=== PATIENT | female | born 1960 | race Caucasian/White ===

== ENCOUNTER 2017-08-16 01:12 | Emergency (ER) | payer BC ==
[~2017-08-16] VITALS: Ht 162.6 cm; Wt 78.4 kg
[2017-08-16 01:14] VITALS: BP 155/90; PULSE 94; TEMP 36.8; O2SAT 98; Ht 162.6 cm; Wt 78.4 kg
[2017-08-16 01:45] LABS: BASO % 0.3 %; BASO ABS # 0.04 K/uL (0-0.2); EOS % 1.6 %; EOS ABS # 0.19 K/uL (0-0.5); HEMATOCRIT 43.9 % (37-47); HEMOGLOBIN 14.6 g/dL (12.0-16.0); IG# 0.03 K/uL (0.00-0.02); LYMPH % 21.4 %; MEAN CELL VOLUME 90.1 fL (80-100); MEAN CORPUSCULAR HGB CONC 33.3 g/dl (32-36); MEAN PLATELET VOLUME 9.6 fL (7.4-10.4); MONO % 8.2 %; MONO ABS # 0.96 K/uL (0.11-0.59); NEUT % 68.2 %; NEUT ABS # 7.94 K/uL (1.4-6.5); PLATELET COUNT 306 K/uL (130-400); RED CELL DISTRIBUTION WIDTH CV 12.8 % (11.5-14.5); RED CELL DISTRIBUTION WIDTH SD 42.3 fL (36.4-46.3); WHITE BLOOD COUNT 11.66 K/uL (4.8-10.8)
[2017-08-16] MEDS ORDERED: ADVIN10/60 INH (01:45)
[2017-08-16] MEDS ORDERED: METF-384 PO (01:45)
[2017-08-16] MEDS ORDERED: PANT40TA PO (01:45)
[2017-08-16] MEDS ORDERED: ALBU18002 INH (01:45)
[2017-08-16] MEDS ORDERED: METRONIDAZOLE 250 MG TAB ONE (03:38)
[2017-08-16] MEDS ORDERED: CIPROFLOXACIN 500 MG TAB ONE (03:38)
[2017-08-16] MEDS ORDERED: OXYCODONE IR HOME PACK PO ONE (03:38)
[2017-08-16] MEDS ORDERED: ONDANSETRON INJ 2 MG/ML 2 ML VIAL ONE (03:38)
[2017-08-16] MEDS ORDERED: MoRPHine SULFATE 4 MG/ML 1 ML CARP\\VIAL ONE (03:38)
[2017-08-16] MEDS ORDERED: ONDANSETRON HOME PACK 4MG OD TAB ONE (03:39)
[2017-08-16 04:25] LABS: ALBUMIN 3.8 gm/dl (3.4-5.0); ALKALINE PHOSPHATASE 88 U/L (45-117); ALT/SGPT 70 U/L (12-78); AST/SGOT 25 U/L (15-37); BLOOD UREA NITROGEN 11 mg/dl (7-18); CALCIUM 9.7 mg/dl (8.5-10.1); CARBON DIOXIDE 28 mmol/L (21-32); CREATININE 0.79 mg/dl (0.60-1.20); GLUCOSE 196 mg/dl (70-99); LIPASE 177 U/L (73-393); POTASSIUM 3.8 mmol/L (3.5-5.1); SODIUM 136 mmol/L (136-145); TOTAL PROTEIN 7.9 gm/dl (6.4-8.2)
[2017-08-16] MEDS ORDERED: OPTIRAY 320 IV PRN (04:30)
--- NOTE | 2017-08-16 04:45 | EMERGENCY ROOM VISIT NOTE ---
History First contact with patient: 01:18 Chief Complaint: ABDOMINAL PAIN Stated Complaint: LOWER ABD PAIN Nursing Triage Summary: lower abdomen pain for several days. radiates to back. no urinary symptoms. +nausea. pt concerned it's her appendix. no fever or chills. no diarrhea or vomiting. History of Present Illness The patient is a 57 year old female who presents to the Emergency Room with complaints of suprapubic lower abdominal pain for the past week described as discomfort, ranging in severity 4 out of 10. No recent imaging on her ovaries. She is postmenopausal. She has had a tubal ligation in the past. Patient denies chest pain, dyspnea, fever, chills, nausea, vomiting, diarrhea, urinary symptoms, vaginal itching or discharge. She occasionally has some low back discomfort. She occasionally has bloating to her lower abdomen. No night sweats or weight loss. Blood sugars have been running around 140 which is normal per patient. Review of Systems An 10 system review of systems was completed with positives and pertinent negatives listed in the HPI. Past Medical/Surgical History Tubal ligation, asthma, diabetes Social History Smoking Status: Never Smoker Smokeless Tobacco Use: No Drug Use: none Marital Status: Housing Status: lives with family Current/Historical Medications Scheduled Fluticasone Prop/Salmeterol (Advair Diskus 100/50 60 Dose), 1 PUFF INH QAM Metformin Hcl (Glucophage), 1,000 MG PO BID Pantoprazole (Protonix), 40 MG PO QAM Scheduled PRN Albuterol Sulfate (Proair Respiclick), 2 PUFFS INH DIRECTED PRN for Wheezing Physical Exam Vital Signs Date Time Temp Pulse Resp B/P (MAP) Pulse Ox O2 Delivery O2 Flow Rate FiO2 08/16/17 01:14 36.8 94 18 155/90 98 Room Air Physical Exam VITALS: Vitals are noted on the nurse's note and reviewed by myself. Vital signs hypertensive GENERAL: Pleasant female, in no acute distress, nondiaphoretic, well-developed well-nourished. SKIN: Capillary reflex less than 2 seconds. HEENT: Normocephalic. PERRLA. EOMI. Nares patent. Mucous membranes moist. Neck is supple without nuchal rigidity. HEART: Regular rate and rhythm without murmurs gallops or rubs. LUNGS: Clear to auscultation bilaterally without wheezes, rales or rhonchi. No retractions or accessory muscle use. ABDOMEN: Positive bowel sounds x 4. Normal tympanic percussion. Soft, minimally tender suprapubic area, no CVA tenderness, without masses or organomegaly. Bennett sign negative. No guarding or rebound tenderness. MUSCULOSKELETAL: No gross musculoskeletal defects. No pedal edema. No calf tenderness. NEURO: Patient was alert and oriented to person place and time. Normal sensation to light and sharp touch. No focal neurological deficits. Medical Decision & Procedures Laboratory Results 08/16/17 01:30 Red Blood Count 4.87, Mean Corpuscular Volume 90.1, Mean Corpuscular Hemoglobin 30.0, Mean Corpuscular Hemoglobin Concent 33.3, Mean Platelet Volume 9.6, Neutrophils (%) (Auto) 68.2, Lymphocytes (%) (Auto) 21.4, Monocytes (%) (Auto) 8.2, Eosinophils (%) (Auto) 1.6, Basophils (%) (Auto) 0.3, Neutrophils # (Auto) 7.94, Lymphocytes # (Auto) 2.50, Monocytes # (Auto) 0.96, Eosinophils # (Auto) 0.19, Basophils # (Auto) 0.04 08/16/17 01:30 Test 08/16/17 01:25 08/16/17 01:30 Urine Color YELLOW Urine Appearance CLEAR (CLEAR) Urine pH 5.5 (4.5-7.5) Urine Specific [place] 1.021 (1.000-1.030) Urine Protein NEG (NEG) Urine Glucose (UA) 3+ (NEG) Urine Ketones NEG (NEG) Urine Occult Blood 1+ (NEG) Urine Nitrite NEG (NEG) Urine Bilirubin NEG (NEG) Urine Urobilinogen NEG (NEG) Urine Leukocyte Esterase NEG (NEG) Urine WBC (Auto) 1-5 /hpf (0-5) Urine RBC (Auto) 0-4 /hpf (0-4) Urine Hyaline Casts (Auto) 0 /lpf (0-5) Urine Epithelial Cells (Auto) 10-20 /lpf (0-5) Urine Bacteria (Auto) NEG (NEG) White Blood Count 11.66 K/uL (4.8-10.8) Red Blood Count 4.87 M/uL (4.2-5.4) Hemoglobin 14.6 g/dL (12.0-16.0) Hematocrit 43.9 % (37-47) Mean Corpuscular Volume 90.1 fL (80-100) Mean Corpuscular Hemoglobin 30.0 pg (25-34) Mean Corpuscular Hemoglobin Concent 33.3 g/dl (32-36) Platelet Count 306 K/uL (130-400) Mean Platelet Volume 9.6 fL (7.4-10.4) Neutrophils (%) (Auto) 68.2 % Lymphocytes (%) (Auto) 21.4 % Monocytes (%) (Auto) 8.2 % Eosinophils (%) (Auto) 1.6 % Basophils (%) (Auto) 0.3 % Neutrophils # (Auto) 7.94 K/uL (1.4-6.5) Lymphocytes # (Auto) 2.50 K/uL (1.2-3.4) Monocytes # (Auto) 0.96 K/uL (0.11-0.59) Eosinophils # (Auto) 0.19 K/uL (0-0.5) Basophils # (Auto) 0.04 K/uL (0-0.2) RDW Standard Deviation 42.3 fL (36.4-46.3) RDW Coefficient of Variation 12.8 % (11.5-14.5) Immature Granulocyte % (Auto) 0.3 % Immature Granulocyte # (Auto) 0.03 K/uL (0.00-0.02) Anion Gap 7.0 mmol/L (3-11) Est Creatinine Clear Calc Drug Dose 81.5 ml/min Estimated GFR () 97.7 Estimated GFR (Non- 84.3 BUN/Creatinine Ratio 13.7 (10-20) Calcium Level 9.7 mg/dl (8.5-10.1) Total Bilirubin 0.3 mg/dl (0.2-1) Direct Bilirubin < 0.1 mg/dl (0-0.2) Aspartate Amino Transf (AST/SGOT) 25 U/L (15-37) Alanine Aminotransferase (ALT/SGPT) 70 U/L (12-78) Alkaline Phosphatase 88 U/L (45-117) Total Protein 7.9 gm/dl (6.4-8.2) Albumin 3.8 gm/dl (3.4-5.0) Lipase 177 U/L (73-393) ED Course Prior records/ancillary studies reviewed. Triage Nursing notes reviewed. Additional history obtained from family The patient's history was concerning for lower abdominal pain. Differential diagnosis: Etiologies such as ovarian cyst, ovarian mass, ovarian carcinoma, appendicitis, diverticulitis, PUD, biliary pathology, UTI, pancreatitis, obstruction, mesenteric ischemia, aortic pathology, infections, inflammatory bowel disease, renal colic, as well as others were entertained. Physical examination findings: As above. ER treatment provided: Patient was observed On reassessment the patient felt better. Diagnostics interpreted by me: The labs revealed leukocytosis. Negative urine Imaging studies: CT concerning for diverticulitis Exam and history seem consistent with diverticulitis. Patient states she has had some spotting since menopause and was informed to get a endometrial biopsy. Patient states she is always had painful intercourse and does not like instrumentation in her vaginal area. This is not new. Patient did not have an acute abdomen on exam. She is neurovascularly and neurologically intact. She is well appearing. She is advised to follow-up with family care in a few days or here in the ER sooner for abdominal pain, fevers, vomiting, worsening signs or symptoms or as needed.By the evaluation outlined above emergent etiologies such as appendicitis, PUD, biliary pathology, UTI, pancreatitis, obstruction, mesenteric ischemia, aortic pathology, infections, inflammatory bowel disease, renal colic, as well as others were deemed relatively unlikely. The pt informed about the findings as listed above. All questions were answered and pleased with the treatment. Return instructions were outlined and the patient was discharged in stable condition. Outpatient prescription management: Cipro, Flagyl, OxyIR, Zofran Referral: The patient was referred back to their primary care physician for follow-up in 2 to 3 days for a recheck of the current condition. Case reviewed with my attending The chart was completed utilizing [employer] Speech voice recognition software. Grammatical errors, random word insertions, pronoun errors, and incomplete sentences are an occassional consequence of this system due to software limitations, ambient noise, and hardware issues. Any formal questions or concerns about the content, text, or information contained within the body of this dictation should be directly addressed to the physician hotel assistant general manager for clarification. Medical Decision As above Medication Reconcilliation Current Medication List: was personally reviewed by me Blood Pressure Screening Patient's blood pressure: Elevated blood pressure Blood pressure disposition: Elevated BP felt to be situational Impression Primary Impression: Sigmoid diverticulitis Departure Information Dispostion Home / Self-Care Condition GOOD Referrals Tobin Valenzuela D.O. (PCP) Patient Instructions My [facility] Additional Instructions DO NOT drive, drink alcohol, operate machinery, or perform dangerous activities today. You were given medications in the ER that can affect your ability to safely function or operate a vehicle. Zofran 4 m tablet every 6 hours as needed for nausea or vomiting. Oxycodone (OxyIR) 5mg: Take 1-2 pills every four hours for breakthrough pain. Avoid alcohol, operating machinery or dangerous equipment, working on ladders or roofs, DRIVING, or situations where being under the influence may be dangerous. It is recommended to use an [id number] stool softener such as Colace, 100mg twice daily while taking this medication to avoid constipation. Ciprofloxacin(Cipro) 500mg: Take one pill twice daily for 14 days for your bowel infection. All antibiotics can cause diarrhea. If this occurs and you feel worse or it does not resolve in 1-2 days follow up with your doctor or return to the Emergency Department as this could be signs of serious underlying problems. If you experience any pain in your tendons or any tendon injury return to the ER for re-evaluation. Any medication can cause an allergic reaction, stop the pills immediately and return to the ER for rash, hives, breathing difficulties, or swelling. Metronidazole(Flagyl) 500mg: Take one pill 3 times daily for 14 days for your bowel infection. DO NOT drink alcohol or take alcohol containing products with this medication. Any medication can cause an allergic reaction, stop the pills immediately and return to the ER for rash, hives, breathing difficulties, or swelling. Ibuprofen(Motrin, Advil) may be used for fever or pain. Use 600mg every six hours as needed. Take with food. Avoid using more than 2400mg in a 24 hour period. Do not use 2400mg per day for more than three consecutive days without physician direction. Prolonged inappropriate use can lead to stomach upset or ulcers. (AND/OR) Acetaminophen(Tylenol) may be used for fever or pain. Use 1000mg every six hours as needed. Avoid using more than 3000mg in a 24 hour period. Rest and drink plenty of fluids as tolerated. Slow sips of water or sports drinks are recommended instead of large amounts all at once. Continue current medications. Once your stomach is settled start with a clear liquid diet (jello, soup broth, etc.) and then advance as tolerated. You should avoid full, heavy meals for about 24 hrs from the time your symptoms resolved. Return to the ER immediately for worsening or persistent abdominal pain, vomiting, fevers, chest pains, difficulty breathing, black or bloody stools, worsening of your condition, or as needed. Follow up with your primary physician/layout man in 2-3 days for a recheck of your current condition. You need to follow-up with your NURSE EXAMINER for postmenopausal bleeding for endometrial biopsy.
--- NOTE | 2017-08-16 06:45 | DIAGNOSTIC IMAGING REPORT ---
PELVIC COMPLETE NON OB CLINICAL HISTORY: pelvic pain, post menopause COMPARISON STUDY: None FINDINGS: Study is extremely limited as the patient declined incomplete exam. No transvaginal evaluation was performed. Possible 1.8 uterine fibroid is considered. Maximum dimension of the uterus could not be evaluated with certainty. The ovaries are not identified with certainty. IMPRESSION: Very limited exam as the patient declined transvaginal or complete transabdominal evaluation. Probable small uterine fibroid. Otherwise nondiagnostic study. The above report was generated using voice recognition software. It may contain grammatical, syntax or spelling errors. Electronically signed by: Jose Walker M.D. 08/16/2017 6:44 AM Dictated Date/Time: 08/16/2017 6:39 AM
--- NOTE | 2017-08-16 06:47 | DIAGNOSTIC IMAGING REPORT ---
ABD/PELVIS IV CONTRAST ONLY CT DOSE: HISTORY: Pelvic pain R/O OVARIAN MASS TECHNIQUE: Multiaxial CT images of the abdomen and pelvis were performed following the use of intravenous contrast. A dose lowering technique was utilized adhering to the principles of ALARA. COMPARISON STUDY: None. FINDINGS: Lung bases are clear. Liver demonstrates mild fatty infiltration. 3.5 cm left hepatic lobe cyst. Kidneys enhance uniformly. The adrenal glands are normal. Bowel pattern within the abdomen is nonobstructive. There are findings of acute proximal to mid sigmoid diverticulitis. Moderate pericolonic infiltrative change. No evidence for abscess collection or obstruction. The uterus is anteflexed. No evidence for ovarian enlargement IMPRESSION: 1. Acute proximal to mid sigmoid diverticulitis. 2. Moderate pericolonic infiltrative change. 3. No evidence for abscess collection or obstruction. 4. Left hepatic lobe cyst. The above report was generated using voice recognition software. It may contain grammatical, syntax or spelling errors. Electronically signed by: Jose Walker M.D. 08/16/2017 6:46 AM Dictated Date/Time: 08/16/2017 6:44 AM
--- NOTE | 2017-08-16 17:41 | Pharmacy Progress Note ---
ED Pharmacist Progress Note Date of Service: Aug 16, 2017. [facility] in [place] called requesting clarification of Cipro Rx ( written Rx). Pharmacist stated Rx was written for Cipro 500mg TID x 14 days. I reviewed Sue's note. She stated the patient was to take Cipro 500mg BID x 14 days. This information was relayed the the pharmacist and she will fill with the BID directions.
== END 2017-08-16 03:55 | disposition home or self-care (01) ==
LOC: C.EDB 01:14
DX: K57.32 Diverticulitis of large intestine without perforation or abscess without bleeding (principal); E11.9 Type 2 diabetes mellitus without complications; J45.909 Unspecified asthma, uncomplicated; Z98.51 Tubal ligation status; Z78.0 Asymptomatic menopausal state; Z79.84 Long term (current) use of oral hypoglycemic drugs